=== PATIENT | male | born 1945 | race Caucasian/White ===

== ENCOUNTER 2020-08-25 10:38 | Emergency (ER) | payer OTHER, BC | END 2020-08-25 11:27 | disposition home or self-care (01) | LOC: JVIRT 10:38 | DX: Z11.59 Encounter for screening for other viral diseases (principal) | CPT/HCPCS: C9803; Q3014-GT; U0003 ==

== ENCOUNTER 2020-10-03 11:41 | Emergency (ER) | payer OTHER ==
--- OUTSIDE RECORDS SUMMARY | 2020-10-03 11:46 | XMS ---
:1945 [address] [facility] Care Team Providers Name Role Phone Fader, M Unavailable Fader, M Unavailable Fader, M Unavailable Fader, M Unavailable Fader, M Unavailable Fader, M Unavailable Fader, M Unavailable Fader, M Unavailable Fader, M Unavailable Fader, M Unavailable Fader, M Unavailable Fader, M Unavailable Fader, M Unavailable Fader, M Unavailable Fader, M Unavailable Re-disclosure Warning The records that you are about to access may contain information from federally- assisted alcohol or drug abuse programs. If such information is present, then the following federally mandated warning applies: This information has been disclosed to you from records protected by federal confidentiality rules (42 CFR part 2). The federal rules prohibit you from making any further disclosure of this information unless further disclosure is expressly permitted by the written consent of the person to whom it pertains or as otherwise permitted by 42 CFR part 2. A general authorization for the release of medical or other information is NOT sufficient for this purpose. The Federal rules restrict any use of the information to criminally investigate or prosecute any alcohol or drug abuse patient.The records that you are about to access may contain highly sensitive health information, the redisclosure of which is protected by Article 27-F of the [facility] Public Health law. If you continue you may haveaccess to information: Regarding HIV / AIDS; Provided by facilities licensed or operated by the [facility] Office of Mental Health; or Provided by the [facility] Office for People With Developmental Disabilities. If such information is present, then the following [facility] mandated warning applies: This information has been disclosed to you from confidential records which are protected by state law. State law prohibits you from making any further disclosure of this information without the specific written consent of the person to whom it pertains, or as otherwise permitted by law. Any unauthorized further disclosure in violation of state law may result in a fine or residential sentence or both. A general authorization for the release of medical or other information is NOT sufficient authorization for further disclosure. Medications Description Medication Start Status Indications Patient Fill Procedure Reaction Data Date Instructions Instructions Intervention Source(s) Code DONEPEZIL Donepezil 06/29/ complet MED GEN (St hydrochlori 2019 ed [facility] de 10 MG 12:00: Medical, Oral Tablet 00 AM PC) EDT BENADRYL Diphenhydra 06/29/ complet ME DGEN (St mine 2019 ed [facility] Hydrochlori 12:00: Medic al, de 25 MG 00 AM PC) Oral EDT Capsule [Benadryl] VITAMIN D3 Cholecalcif MEDGEN (St casey 1999 2018 ed [facility] UNT Oral 12:00: Medical, Tablet 00 AM PC) EST Problems Concern Problem Problem Problem Problem Effective Problem Health Data Status Code Name Description Type Dates Status Status Sour ce(s) Description Description complete I35.0 Nonrheum Diagnosi 06/29/2020 ME DGEN (St d atic s 12:00:00 [facility] aortic AM EDT Medical, (valve) PC) stenosis complete R41.3 Other Diagnosi 06/29/2020 MED GEN (St d amnesia s 12:00:00 [facility] AM EDT Medical, PC) active I35.0 Nonrheum NONRHEUMATIC Problem 08/12/2019 MEDGEN (St atic AORTIC 12:00:00 [facility] aortic (VALVE) AM EST Medical, (valve) STENOSIS PC) stenosis active Z23 Encounte ENCOUNTER Problem 08/12/2019 ME DGEN (St r for FOR 12:00:00 [facility] immuniza IMMUNIZATION AM EST Me dical, tion PC) Procedures Procedure Procedure Procedure Medication Medication Medication Medicatio n Indications Patient Fill Description Data Date Instructions Description Start Date Status Instruc tions Instructions Source(s) Documentat 06/29/2020 MED[facility] ([facility] ion of 12:00:00 [facility] current AM EDT Medic al, medication PC) s (procedure ) Documentat 06/29/2020 MEDGEN ([facility] ion of 12:00:00 [facility] current AM EDT Medic al, medication PC) s (procedure ) OFFICE 06/29/2020 ME DGEN (St OUTPATIENT 12:00:00 [facility] VISIT 25 AM EDT Medi shiv, MINUTES PC) Documentat 03/09/2020 MEDGEN (St ion of 12:00:00 [facility] current AM EDT Medic al, medication PC) s (procedure ) Documentat 03/09/2020 MEDGEN (St ion of 12:00:00 [facility] current AM EDT Medic al, medication PC) s (procedure ) Documentat 03/09/2020 MEDGEN (St ion of 12:00:00 [facility] current AM EDT Medic al, medication PC) s (procedure ) Documentat 03/09/2020 MEDGEN (St ion of 12:00:00 [facility] current AM EDT Medic al, medication PC) s (procedure ) Documentat 03/09/2020 MEDGEN (St ion of 12:00:00 [facility] current AM EDT Medic al, medication PC) s (procedure ) Documentat 03/09/2020 MEDGEN (St ion of 12:00:00 [facility] current AM EDT Medic al, medication PC) s (procedure ) Documentat 03/09/2020 MEDGEN (St ion of 12:00:00 [facility] current AM EDT Medic al, medication PC) s (procedure ) Documentat 03/09/2020 MEDGEN (St ion of 12:00:00 [facility] current AM EDT Medic al, medication PC) s (procedure ) OFFICE 03/09/2020 ME DGEN (St OUTPATIENT 12:00:00 [facility] VISIT 25 AM EDT Medi shiv, MINUTES PC) PNEUMOCOCC 03/09/2020 MEDGEN (St AL CONJ 12:00:00 [facility]aya n[facility] VACCINE 13 AM EDT Me dical, VALENT IM PC) IMADM PRQ 03/09/2020 MEDGEN (St ID SUBQ/IM 12:00:00 [facility] NJXS 1 AM EDT Medica l, VACCINE PC) Documentat 08/12/2019 MEDGEN (St ion of 12:00:00 [facility] current AM EST Medic al, medication PC) s (procedure ) Documentat 08/12/2019 MEDGEN (St ion of 12:00:00 [facility] current AM EST Medic al, medication PC) s (procedure ) Documentat 08/12/2019 MEDGEN (St ion of 12:00:00 [facility] current AM EST Medic al, medication PC) s (procedure ) Documentat 08/12/2019 MEDGEN (St ion of 12:00:00 [facility] current AM EST Medic al, medication PC) s (procedure ) Documentat 08/12/2019 MEDGEN (St ion of 12:00:00 [facility] current AM EST Medic al, medication PC) s (procedure ) Documentat 08/12/2019 MEDGEN (St ion of 12:00:00 [facility] current AM EST Medic al, medication PC) s (procedure ) Documentat 08/12/2019 MEDGEN (St ion of 12:00:00 [facility] current AM EST Medic al, medication PC) s (procedure ) OFFICE 08/12/2019 ME DGEN (St OUTPATIENT 12:00:00 [facility] VISIT 25 AM EST Medi shiv, MINUTES PC) INFLUENZA 08/12/2019 MEDGEN (St VACCINE 12:00:00 Jaya n[facility] AM EST Medical , PC) IMADM PRQ 08/12/2019 MEDGEN (St ID SUBQ/IM 12:00:00 [facility] NJXS 1 AM EST Medica l, VACCINE PC) Results ID Date Data Source [id number] 08/25/2020 11:30:00 AM EST [facility] Name Value Range Interpretation Description Data Sup porting Code Source(s) Document(s ) SARS [facility] coronavirus 2 RNA This lab was ordered by [facility] and reported by [facility]. Encounters Encounter Providers Location Date Problem Problem Problem Effective [facility] Data Code Name Description Dates Status Status Source (s) Description Description Attender: 06/29 I35.0 Nonrheum 06/29/2020 ME DGEN ( atic 12:00:00 [facility] Fader 12:00 aortic AM EDT Medical, :00 (valve) PC) AM stenosis EDT Office Attender: 06/29/2020 R41.3 Other 06/29/2020 MEDGEN ([facility] [place] Fader 12:00:00 AM EDT amnesia 12:00:00 AM E DT [facility], [facility]) Office Insurance Providers Payer name Policy type Policy ID Covered Covered democrat's Policy P greg / Coverage democrat ID relationship to [facility] Inf ormation type [facility] [id number] [facility] 1 [id number] PPO SP [id number] Social History Social History Description Effective Dates Description Data Sourc e(s) Type Smoking Marital Status 06/29/2020 Marital Status MEDGEN (St Household 12:00:00 AM EDT Household [facility], Members 1 Lives Members 1 Lives PC) Independently Yes Independently Yes Number of Children Number of Children 3 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 Alcohol Use Social Tobacco Status: Never smoker Smoking Status Never smoked 06/29/2020 Never smoked [facility] Vital Signs ID Date Data Source UNK MEDGEN ([facility], PC) Name Value Range Interpretation Code Description Data Source(s) Heart rate 48 /min MED[facility] ([facility], ) ID Date Data Source UNK MEDGEN ([facility], PC) Name Value Range Interpretation Code Description Data Source(s) Respiratory rate 16 /min MEDGEN ( [facility], ) ID Date Data Source UNK MEDGEN ([facility] [place] [place] dical, ) Name Value Range Interpretation Code Description Data Source(s) Body temperature 97.1 F MEDGEN ( [facility], ) ID Date Data Source UNK MEDGEN ([facility] [place] [place] dical, ) Name Value Range Interpretation Code Description Data Source(s) Inhaled oxygen 99 % MEDGEN ([facility], ) ID Date Data Source UNK MEDGEN ([facility] [place] [place] dical, ) Name Value Range Interpretation Code Description Data Source(s) Body mass index 23.8 kg/m2 MED[facility] (S [facility] (BMI) [Ratio] Medical, ) ID Date Data Source UNK MEDGEN ([facility] [place] [place] dical, PC) Name Value Range Interpretation Code Description Data Source(s) Diastolic blood 67 mm[Hg] MEDGEN ([facility]'s pressure [facility], ) ID Date Data Source UNK MEDGEN ([facility], ) Name Value Range Interpretation Code Description Data Source(s) Systolic blood 112 mm[Hg] MEDGEN ([facility], ) ID Date Data Source UNK MEDGEN ([facility], ) Name Value Range Interpretation Code Description Data Source(s) Body weight 154 lb MEDGEN ([facility] Medical, ) ID Date Data Source UNK MEDGEN ([facility], ) Name Value Range Interpretation Code Description Data Source(s) Body height 67.5 in MEDGEN ([facility] Medical, PC) ID Date Data Source UNK [facility] ([facility], [facility]) Name Value Range Interpretation Code Description Data Source(s) Heart rate 47 /min MEDGEN ([facility] n's Medical, PC) ID Date Data Source UNK MED[facility] ([facility], PC) Name Value Range Interpretation Code Description Data Source(s) Respiratory rate 14 /min [facility] ( [facility], [facility]) ID Date Data Source UNK MED[facility] ([facility], [facility]) Name Value Range Interpretation Code Description Data Source(s) Body temperature 98 F MED[facility] ( [facility], [facility]) ID Date Data Source UNK MED[facility] ([facility], [facility]) Name Value Range Interpretation Code Description Data Source(s) Inhaled oxygen 97 % [facility] ([facility] ) ID Date Data Source UNK MED[facility] ([facility], [facility]) Name Value Range Interpretation Code Description Data Source(s) Body mass index 24.1 kg/m2 MEDGEN (S [facility] (BMI) [Ratio] Medical, PC ) ID Date Data Source UNK MEDGEN ([facility], [facility]) Name Value Range Interpretation Code Description Data Source(s) Diastolic blood 67 mm[Hg] MEDGEN (S [facility] pressure Medical, PC) ID Date Data Source UNK MED[facility] ([facility], [facility]) Name Value Range Interpretation Code Description Data Source(s) Systolic blood 114 mm[Hg] MEDGEN ([facility] pressure [facility], PC) ID Date Data Source UNK MEDGEN ([facility], PC) Name Value Range Interpretation Code Description Data Source(s) Body weight 156 lb [facility] ([facility]) ID Date Data Source UNK MEDGEN ([facility], [facility]) Name Value Range Interpretation Code Description Data Source(s) Body height 67.5 in [facility] ([facility]) ID Date Data Source UNK MEDGEN ([facility], [facility]) Name Value Range Interpretation Code Description Data Source(s) Heart rate 50 /min MEDGEN ([facility] Medical, PC) ID Date Data Source UNK MEDGEN ([facility], PC) Name Value Range Interpretation Code Description Data Source(s) Respiratory rate 17 /min MEDGEN ( [facility], ) ID Date Data Source UNK MEDGEN ([facility] [place] [place] dicdc, ) Name Value Range Interpretation Code Description Data Source(s) Body temperature 98.3 F MEDGEN ( [facility], ) ID Date Data Source UNK MEDGEN ([facility] [place] [place] dicdc, ) Name Value Range Interpretation Code Description Data Source(s) Inhaled oxygen 94 % MEDGEN ([facility], ) ID Date Data Source UNK MEDGEN ([facility] [place] [place] [facility]dc, ) Name Value Range Interpretation Code Description Data Source(s) Body mass index 24.5 kg/m2 MEDGEN ([facility]'s (BMI) [Ratio] Medical, ) ID Date Data Source UNK MEDGEN ([facility] [place] [place] dicdc, ) Name Value Range Interpretation Code Description Data Source(s) Diastolic blood 70 mm[Hg] [facility], ) ID Date Data Source UNK [facility] ) Name Value Range Interpretation Code Description Data Source(s) Systolic blood 114 mm[Hg] MEDGEN ([facility], ) ID Date Data Source UNK [facility], ) Name Value Range Interpretation Code Description Data Source(s) Body weight 159 lb MEDGEN ([facility], ) ID Date Data Source UNK MEDGEN ([facility] [place] [place] dicdc, ) Name Value Range Interpretation Code Description Data Source(s) Body height 67.5 in MEDGEN ([facility], )
--- NOTE | 2020-10-03 13:21 | TELE ---
HPI Do you have fever,cough or shortness of breath?: No - General Reason For Visit: COVID 19 TEST History Source: Care Provider, Family (75 y/o M with loss of taste and smell and +COVID exposure ) Past History - Medical History Allergies/Adverse Reactions: Allergies Allergy/AdvReac Type Severity Reaction Status Date / Time caffeine Allergy Intolerance Unverified 07/12/13 08:18 Home Medications: Ambulatory Orders Amox-Tr/K Cl [Augmentin 875-125mg Tablet -] 1 each PO BID #10 tablet 04/12/12 Anemia: No Asthma: No Cancer: No Cardiac Disorders: Yes CVA: No COPD: No Dementia: No Diabetes: No Dialysis: No GI Disorders: No Disorders: No HTN: No Hypercholesterolemia: No Kidney Stones: No Liver Disease: No Seizures: No Thyroid Disease: No - Surgical History Abdominal Surgery: No Appendectomy: No Cardiac Surgery: No Cholecystectomy: No Lung Surgery: No Neurologic Surgery: No - Immunization History Td Vaccination: No Immunization Up to Date: Yes - Psycho-Social/Smoking History Smoking Status: No Smoking History: Never smoked Years of Tobacco Use: 0 Number of Cigarettes Smoked Daily: 0 Cigars Per Day: 0 Review of Systems - Review of Systems Constitutional: Yes: See HPI. No: Fever *Physical Exam - Physical Exam HEENT: positive: Normal Voice. negative: Muffled/Hoarse voice Respiratory/Chest: negative: Respiratory Distress - Medical Decision Making 10/03/20 13:20 Visit done through telephone voice greater than 5 minutes Will test for COVID, discussed quarantine and follow up Pt with positive exposure to COVID Virtual visit via telephone voice call greater than 5 minutes I have reviewed the pathophysiology with the patient. They are in agreement with the treatment plan and all questions were answered to their satisfaction. Understanding for follow-up without fail was also conveyed to the patient. Again they are in agreement. Patient will be quarantined until COVID test results. Pt with symptoms concerning for COVID Discharge Diagnosis at time of Disposition: Exposure to COVID-19 virus - Referrals Follow-up Referral(s): Wilfredo Amato MD [Primary Care Provider] - - Patient Instructions Additional Discharge Instructions: Return to the Emergency Room for any reason at any time. Without fail, follow up with your primary care physician in 1-2 days for further evaluation and treatment options. Tylenol as directed for fevers and body aches. Your COVID results are pending. It's important for you to isolate until your results are obtained. You may also supplement with vitamins C, D and Zinc as per instructions on the bottle. - Discharge Disposition: HOME Condition at time of Disposition: Stable
== END 2020-10-03 13:21 | disposition home or self-care (01) ==
LOC: JVIRT 11:41
DX: Z03.818 Encounter for observation for suspected exposure to other biological agents ruled out (principal)
CPT/HCPCS: C9803; G2012-GT; U0003

== ENCOUNTER 2020-10-08 11:32 | Emergency (ER) | payer OTHER | END 2020-10-08 15:39 | disposition home or self-care (01) | LOC: JVIRT 11:32 | DX: Z03.818 Encounter for observation for suspected exposure to other biological agents ruled out (principal) | CPT/HCPCS: C9803; G2012-GT; Q3014-GT; U0003 ==

== ENCOUNTER 2022-01-12 11:07 | Emergency (ER) | payer OTHER, BC ==
[2022-01-12 12:11] VITALS: TEMP 97; BMI 22.0
[2022-01-12 12:16] LABS: BASO % 0.6 % (0-2.0); EOS % 1.7 % (0-4.5); HEMATOCRIT 38.4 % (35.4-49); HEMOGLOBIN 13.3 GM/dL (11.7-16.9); LYMPH % 19.2 % (8-40); MCH 31.4 pg (25.7-33.7); MCHC 34.6 g/dl (32.0-35.9); MEAN CELL VOLUME 90.6 fl (80-96); MEAN PLT VOLUME 7.1 fl (7.5-11.1); MONO % 10.6 % (3.8-10.2); NEUT % 67.9 % (42.8-82.8); PLATELET COUNT 185 10^3/uL (134-434); RBC 4.23 M/mm3 (4.00-5.60); RDW 14.3 % (11.9-15.9); WHITE BLOOD COUNT 5.6 K/mm3 (4.0-10.0)
[2022-01-12 12:34] LABS: CALCIUM 8.2 mg/dL (8.5-10.1)
[2022-01-12 12:35] LABS: ALBUMIN 3.4 g/dl (3.4-5.0); BLOOD UREA NITROGEN 22.5 mg/dL (7-18); MAGNESIUM 2.3 mg/dL (1.8-2.4)
[2022-01-12 12:38] LABS: CREATININE 0.8 mg/dL (0.55-1.3); PHOSPHOROUS 3.4 mg/dL (2.5-4.9)
[2022-01-12 12:39] LABS: BILIRUBIN,TOTAL 0.6 mg/dL (0.2-1); TOT PROT 6.6 g/dl (6.4-8.2)
[2022-01-12 13:36] LABS: URINE APPEARANCE CLEAR; URINE BILIRUBIN NEGATIVE (NEGATIVE); URINE COLOR YELLOW; URINE GLUCOSE (UA) NEGATIVE (NEGATIVE); URINE KETONE TRACE (NEGATIVE); URINE LEUK ESTERASE NEGATIVE (NEGATIVE); URINE NITRITE NEGATIVE (NEGATIVE); URINE PROTEIN NEGATIVE (NEGATIVE); URINE UROBILINOGEN 0.2 mg/dL (0.2-1.0)
[2022-01-12 15:22] VITALS: BP 135/74; PULSE 51
== END 2022-01-12 15:31 | disposition home or self-care (01) ==
LOC: JER 11:07
DX: R41.82 Altered mental status, unspecified (principal); F03.90 Unspecified dementia, unspecified severity, without behavioral disturbance, psychotic disturbance, mood disturbance, and anxiety
CPT/HCPCS: 36415; 70450-TC; 71045-TC-FY; 80053; 81003; 82962; 83735; 84100; 84484; 85025; 87086; 87804; 93005; 93010; 99285-25; C9803-CS; U0003; U0005